=== PATIENT | female | born 1960 | race Caucasian/White ===

== ENCOUNTER → 2017-10-01 | Outpatient (CLI) | payer OTHER ==
[~2017-10-01] MED LIST: AUGMENTIN 875875 MG PO; BAYER CHEWABLE81 MG PO; BINOSTO70 MG; CARVEDILOL6.25 MG PO; COUMADIN 4 MG TA4 M1 PO; ENOXAPARIN80 MG/0.1 SUBQ; ENOXAPARIN80 MG/0.8 SUBQ; FUROSEMIDE 80 M80 M1 PO; IRON325 PO; KLOR-CON 1010 MEQ; LASIX 40 MG TAB40 M2; LEVAQUIN 750 M750 MG PO; LEVOTHYROXIN0.075 MG PO; LIPITOR 20 MG T20 M1 PO; NORCO 5-325 TA1 EACH PO; ONDANSETRON HCL4 M2 PO; PANTOPRAZOLE SO40 M1 PO; PERCOCET 5-3251 EACH PO; POTASSIUM20 PO; TOPROL XL25 MG
== END ==
LOC: M.RAD 08:22
DX: Z12.31 Encounter for screening mammogram for malignant neoplasm of breast (principal)

== ENCOUNTER → 2017-10-07 | Outpatient (CLI) | payer OTHER | LOC: M.RAD 09:40 → M.ULTRA 10:30 → M.RAD 12:54 | DX: R92.8 Other abnormal and inconclusive findings on diagnostic imaging of breast (principal); Z85.3 Personal history of malignant neoplasm of breast ==

== ENCOUNTER → 2018-04-14 | Outpatient (CLI) | payer OTHER | LOC: M.RAD 09:57 | DX: C50.412 Malignant neoplasm of upper-outer quadrant of left female breast (principal); R92.8 Other abnormal and inconclusive findings on diagnostic imaging of breast; Z17.0 Estrogen receptor positive status [ER+] ==

== ENCOUNTER → 2018-09-29 | Outpatient (CLI) | payer BC | LOC: M.RAD 09:49 | DX: Z12.31 Encounter for screening mammogram for malignant neoplasm of breast (principal) ==

== ENCOUNTER → 2019-10-02 | Outpatient (CLI) | payer BC | LOC: M.RAD 09-30 10:20 | DX: Z12.31 Encounter for screening mammogram for malignant neoplasm of breast (principal) ==

== ENCOUNTER → 2020-11-16 | Outpatient (CLI) | payer OTHER | LOC: M.RAD 10-05 10:00 | PROVIDERS: ATTEND Internal Medicine Hematology & Oncology | DX: Z12.31 Encounter for screening mammogram for malignant neoplasm of breast (principal) ==